=== PATIENT | female | born 1940 | race Caucasian/White ===

== ENCOUNTER → 2017-01-11 | Outpatient (CLI) | payer MEDICARE | END | disposition home or self-care (01) | LOC: CVU 14:15 | PROVIDERS: ATTEND Surgery | DX: I70.201 Unspecified atherosclerosis of native arteries of extremities, right leg (principal); I10 Essential (primary) hypertension; E78.5 Hyperlipidemia, unspecified; J44.9 Chronic obstructive pulmonary disease, unspecified; Z95.820 Peripheral vascular angioplasty status with implants and grafts | CPT/HCPCS: 93922; 93978 ==

== ENCOUNTER → 2018-06-30 | Outpatient (CLI) | payer MEDICARE | END | disposition home or self-care (01) | LOC: CVU 08:03 | PROVIDERS: ATTEND Surgery | DX: I65.23 Occlusion and stenosis of bilateral carotid arteries (principal); I70.201 Unspecified atherosclerosis of native arteries of extremities, right leg; I74.5 Embolism and thrombosis of iliac artery; I10 Essential (primary) hypertension; E78.5 Hyperlipidemia, unspecified; E78.00 Pure hypercholesterolemia, unspecified; I70.8 Atherosclerosis of other arteries; J84.10 Pulmonary fibrosis, unspecified | CPT/HCPCS: 93880; 93922; 93978 ==

== ENCOUNTER → 2018-11-03 | Outpatient (CLI) | payer MEDICARE ==
[~2018-11-03] MED LIST: CALC1CAP8 PO; CLOP75TA PO; MELA10TA PO; MULT-516 PO; PIRF801T PO; POTA20TA6 PO
[2018-11-03 09:24] LABS: ANION GAP 8 mmol/L (5-15); CALCIUM 9.7 mg/dL (8.5-10.1); CHLORIDE 109 mmol/L (98-107)
[2018-11-03 09:25] LABS: BASOPHILS # (AUTO) 0.03 x10^3/uL (0-0.1); BASOPHILS % (AUTO) 0 % (0-1); CREATININE 0.94 mg/dL (0.55-1.02); EOSINOPHILS # (AUTO) 0.24 x10^3/uL (0-0.4); EOSINOPHILS % (AUTO) 3 % (1-7); LYMPHOCYTES # (AUTO) 1.55 x10^3/uL (1-3.4); LYMPHOCYTES % (AUTO) 18 % (22-44); MD NO; MEAN CORPUSCULAR HEMOGLOBIN 29.3 pg (27.0-34.8); MEAN CORPUSCULAR HGB CONC 32.7 g/dL (32.4-35.8); MEAN CORPUSCULAR VOLUME 89.6 fL (80-100); MEAN PLATELET VOLUME 7.8 fL (7.4-10.4); MONOCYTES # (AUTO) 0.53 x10^3/uL (0.2-0.8); MONOCYTES % (AUTO) 6 % (2-9); NEUTROPHILS # (AUTO) 6.37 x10^3/uL (1.8-6.8); NEUTROPHILS % (AUTO) 73 % (42-75); PLATELET COUNT 312 x10^3/uL (130-400); RED CELL DISTRIBUTION WIDTH 13.7 % (9.6-15.2)
== END | disposition home or self-care (01) ==
LOC: STAR 07:56
PROVIDERS: ATTEND Surgery
DX: Z01.818 Encounter for other preprocedural examination (principal); I73.9 Peripheral vascular disease, unspecified; M25.571 Pain in right ankle and joints of right foot
CPT/HCPCS: 36415; 80048; 85025

== ENCOUNTER 2018-11-07 08:11 | Day surgery (SDC) | payer MEDICARE ==
[~2018-11-07] VITALS: Ht 162.6 cm; Wt 97.7 kg
[2018-11-07 08:50] VITALS: BP 165/72
[2018-11-07] MEDS ORDERED: PROTAMINE SULFATE 10 MG/ML, 25ML ONE (08:52)
[2018-11-07] MEDS ORDERED: FLUMAZENIL 0.1 MG/1 ML, 5ML ONE (08:52)
[2018-11-07] MEDS ORDERED: FENTANYL PF 100 MCG/2ML ONE (08:52)
[2018-11-07] MEDS ORDERED: NALOXONE 1 MG/ML, 2ML ONE (08:52)
[2018-11-07] MEDS ORDERED: MIDAZOLAM 1 MG/ML, 5ML ONE (08:52)
[2018-11-07] MEDS ORDERED: NITROGLYCERIN 5 MG/ML, 10ML ONE (08:52)
[2018-11-07] MEDS ORDERED: HEPARIN 1,000 UNITS/ML, 10ML ONE (08:52)
[2018-11-07] MEDS ORDERED: VISIPAQUE 270 MG/ML, 150ML BOTTLE ONE (09:00)
[2018-11-07] MEDS ORDERED: LIDOCAINE-MPF 1%, 5ML ONE (09:00)
[2018-11-07] MEDS ORDERED: CEFAZOLIN PMX 1GM/50ML 100 ML ONE (09:22)
[2018-11-07] MEDS ORDERED: hydrALAzine 20 MG/ML, 1ML ONE (09:29)
== END 2018-11-07 12:50 | disposition home or self-care (01) ==
LOC: OUT 08:11
PROVIDERS: ATTEND Surgery
DX: I70.211 Atherosclerosis of native arteries of extremities with intermittent claudication, right leg (principal); J44.9 Chronic obstructive pulmonary disease, unspecified; I10 Essential (primary) hypertension; E78.5 Hyperlipidemia, unspecified; Z99.81 Dependence on supplemental oxygen
CPT/HCPCS: 36200; 75630; 76937; 99156; 99157; C1751; C1760; C1769; C1894; G0269; J0360; J0690; J2250; J3010; Q9966; J1644; J2720; J2310

== ENCOUNTER → 2018-12-15 | Outpatient (CLI) | payer MEDICARE | END | disposition home or self-care (01) | LOC: CVU 11:49 | PROVIDERS: ATTEND Surgery | DX: I65.23 Occlusion and stenosis of bilateral carotid arteries (principal); J84.9 Interstitial pulmonary disease, unspecified; J84.10 Pulmonary fibrosis, unspecified | CPT/HCPCS: 71250; 93880 ==

== ENCOUNTER → 2019-07-11 | Outpatient (CLI) | payer MEDICARE, OTHER ==
[~2019-07-11] MED LIST changes: +ACET-1600 PO; +ENOX40SY4 SQ; +HYDR-3240 PO; +LISI5TAB7 PO; +SIMV20TA3 PO; +TRIA15CR53 TD
== END | disposition home or self-care (01) ==
LOC: CFH 12:27
PROVIDERS: ATTEND Nurse Practitioner Family
DX: J84.10 Pulmonary fibrosis, unspecified (principal); J84.9 Interstitial pulmonary disease, unspecified; J96.11 Chronic respiratory failure with hypoxia; Z87.891 Personal history of nicotine dependence
CPT/HCPCS: 71046

== ENCOUNTER 2019-08-08 12:27 | Outpatient (CLI) | payer MEDICARE ==
[~2019-08-08 12:27] MED LIST changes: +REGADENOSON 0.4 MG/5 ML SYRINGE ONE; +SIMV20TA19 PO; -SIMV20TA3 PO
== END 2019-08-08 23:59 | disposition home or self-care (01) ==
LOC: CFH 12:27
PROVIDERS: ATTEND Surgery
DX: Z01.818 Encounter for other preprocedural examination (principal); I25.10 Atherosclerotic heart disease of native coronary artery without angina pectoris
CPT/HCPCS: 78452; 93017; A9502; J2785

== ENCOUNTER → 2019-08-28 | Outpatient (CLI) | payer MEDICARE ==
[~2019-08-28] MED LIST changes: -REGADENOSON 0.4 MG/5 ML SYRINGE ONE; -SIMV20TA19 PO; +SIMV20TA3 PO
== END | disposition home or self-care (01) ==
LOC: CVU 14:10
PROVIDERS: ATTEND Internal Medicine Cardiovascular Disease
DX: I08.0 Rheumatic disorders of both mitral and aortic valves (principal); E78.5 Hyperlipidemia, unspecified; Z87.891 Personal history of nicotine dependence; Z79.01 Long term (current) use of anticoagulants
CPT/HCPCS: 93306

== ENCOUNTER 2020-03-02 12:45 | Observation (INO) | payer MEDICARE ==
[2020-03-02] VITALS (11 sets, daily range): BP systolic 96–206; BP diastolic 46–102
[~2020-03-02] VITALS: Ht 162.6 cm; Wt 97.6 kg
[~2020-03-02 12:45] MED LIST changes: +SIMV20TA19 PO; -SIMV20TA3 PO
[2020-03-02] MEDS ORDERED: OMEP20CA20 PO (13:12)
[2020-03-02] MEDS ORDERED: POTA20TA14 PO (13:12)
--- NOTE | 2020-03-02 13:15 | NUR ---
PER DAUGHTER: LAB DRAWN AT [place] WEDNESDAY. HGB "5". PT C/O FEELING TIRED, A LITTLE LIGHTHEADED W/ "GETTING UP", CONSTIPATION. DENIES N/V. LAST BM: TODAY - FORMED, TAE. TOOK COLACE LAST NOC.
[2020-03-02] MEDS ORDERED: SODIUM CHLORIDE FLUSH 10ML SYR IVF ONE (13:30)
[2020-03-02 13:35] LABS: MEAN CORPUSCULAR HEMOGLOBIN 20.2 pg (27.0-34.8); MEAN CORPUSCULAR HGB CONC 30.5 g/dL (32.4-35.8); MEAN CORPUSCULAR VOLUME 66.3 fL (80-100); MEAN PLATELET VOLUME 7.7 fL (7.4-10.4); PLATELET COUNT 356 x10^3/uL (130-400); RED BLOOD COUNT 2.87 x10^6/uL (3.82-5.3); RED CELL DISTRIBUTION WIDTH 18.2 % (9.6-15.2)
[2020-03-02 13:43] LABS: ANION GAP 10 mmol/L (5-15); CALCIUM 8.1 mg/dL (8.5-10.1); CHLORIDE 114 mmol/L (98-107); CREATININE 0.87 mg/dL (0.55-1.02); INTERNATIONAL NORMALIZED RATIO 0.94 (0.93-1.1)
[2020-03-02 13:57] LABS: BASOPHILS # (AUTO) 0.14 x10^3/uL (0-0.1); BASOPHILS % (AUTO) 2 % (0-1); EOSINOPHILS # (AUTO) 0.23 x10^3/uL (0-0.4); EOSINOPHILS % (AUTO) 3 % (1-7); LYMPHOCYTES # (AUTO) 1.13 x10^3/uL (1-3.4); LYMPHOCYTES % (AUTO) 16 % (22-44); MD MORPH REVIEW ONLY; MONOCYTES # (AUTO) 0.46 x10^3/uL (0.2-0.8); MONOCYTES % (AUTO) 7 % (2-9); NEUTROPHILS # (AUTO) 5.14 x10^3/uL (1.8-6.8); NEUTROPHILS % (AUTO) 72 % (42-75)
[2020-03-02 13:58] LABS: ANISOCYTOSIS 1+; HYPOCHROMIA 1+; MICROCYTOSIS 2+; POLYCHROMASIA 1+
[2020-03-02 13:59] LABS: <PLATELET ESTIMATE> ADEQUATE; <PLT MORPHOLOGY> NORMAL PLT MORPH; OVALOCYTES 1+; TEAR DROPS 1+
--- NOTE | 2020-03-02 14:30 | NUR ---
IV ATTEMPTED X3; UNSUCCESSFUL; WILL SEEK ASSISTANCE.
--- NOTE | 2020-03-02 14:46 | NUR ---
TRANSFUSION EDUCATION DOCUMENT PROVIDED TO PT. BLOOD TRANSFUSION CONSENT SIGNED BY PT.
--- NOTE | 2020-03-02 14:57 | NUR ---
BLOOD REQUEST FORM TUBED TO BLOOD BANK.
[2020-03-02] MEDS ORDERED: SODIUM CHLORIDE FLUSH 10ML SYR IVF PRN (15:00)
--- NOTE | 2020-03-02 15:20 | NUR ---
BLOOD TRANSFUSION INITIATED. PT RESTING QUIETLY ON GURNEY. CARDIAC & VS MONITORING IN PROGRESS. CALL LIGHT W/IN REACH
--- NOTE | 2020-03-02 15:37 | NUR ---
DR REED AT BS; AWARE OF BP 201/67
[2020-03-02] MEDS ORDERED: hydrALAzine 20 MG/ML, 1ML IVPush PRN (16:00)
[2020-03-02] MEDS ORDERED: ACETAMINOPHEN 325 MG TABLET PO PRN (16:00)
[2020-03-02] MEDS ORDERED: ONDANSETRON 2MG/ML, 2ML IVPush PRN (16:00)
[2020-03-02] MEDS ORDERED: POTASSIUM CHLORIDE 20 MEQ TAB.ER.PRT PO ONE (16:00)
[2020-03-02] MEDS ORDERED: LABETALOL 5MG/ML, 20ML IVPush PRN (16:00)
[2020-03-02] MEDS ORDERED: POTASSIUM CHLORIDE 20 MEQ TAB.ER.PRT ONE (16:14)
--- NOTE | 2020-03-02 16:25 | NUR ---
PT'S PRESCRIPTION BOTTLE OF ESBRIET 801MG TAB CHECKED AND OK'D PER PHARMACY
[2020-03-02] MEDS: PIRFENIDONE 801 MG HOMEMEDPO SCH ×2 (16:33→20:45)
--- NOTE | 2020-03-02 16:34 | NUR ---
KDUR AND ESBRIET GIVEN PER EMAR. LISE CRACKERS AND WATER PROVIDED TO PT.
--- NOTE | 2020-03-02 16:49 | NUR ---
PT REPORT TO [facility] FOR ROOM [id number]
--- NOTE | 2020-03-02 16:52 | NUR ---
PT UP TO BS COMMODE. RETURNED TO [facility] W/OUT INCIDENT.
[2020-03-02] MEDS: CALCIUM/VITAMIN D3 250-125 TABLET PO SCH (20:43)
[2020-03-02] MEDS ORDERED: MELATONIN 5 MG TABLET PO SCH (21:00)
[2020-03-02] MEDS ORDERED: SIMVASTATIN 20 MG TABLET PO SCH (21:00)
[2020-03-03 01:18] VITALS: BP 119/57
[2020-03-03 05:07] LABS: ANION GAP 6 mmol/L (5-15); CALCIUM 8.3 mg/dL (8.5-10.1); CHLORIDE 117 mmol/L (98-107); CREATININE 0.76 mg/dL (0.55-1.02)
[2020-03-03 06:23] LABS: MEAN CORPUSCULAR HEMOGLOBIN 23.2 pg (27.0-34.8); MEAN CORPUSCULAR HGB CONC 31.6 g/dL (32.4-35.8); MEAN CORPUSCULAR VOLUME 73.4 fL (80-100); MEAN PLATELET VOLUME 7.7 fL (7.4-10.4); PLATELET COUNT 338 x10^3/uL (130-400); RED BLOOD COUNT 3.46 x10^6/uL (3.82-5.3); RED CELL DISTRIBUTION WIDTH 22.2 % (9.6-15.2)
[2020-03-03 06:45] LABS: BASOPHILS # (AUTO) 0.06 x10^3/uL (0-0.1); BASOPHILS % (AUTO) 1 % (0-1); EOSINOPHILS # (AUTO) 0.27 x10^3/uL (0-0.4); EOSINOPHILS % (AUTO) 4 % (1-7); LYMPHOCYTES % (AUTO) 14 % (22-44); MD SCAN; MONOCYTES # (AUTO) 0.39 x10^3/uL (0.2-0.8); MONOCYTES % (AUTO) 5 % (2-9); NEUTROPHILS # (AUTO) 5.56 x10^3/uL (1.8-6.8); NEUTROPHILS % (AUTO) 76 % (42-75)
[2020-03-03 06:54] VITALS: BP 137/67
[2020-03-03] MEDS: CALCIUM/VITAMIN D3 250-125 TABLET PO SCH (08:11)
[2020-03-03] MEDS: PIRFENIDONE 801 MG HOMEMEDPO SCH ×2 (08:12→12:50)
[2020-03-03] MEDS ORDERED: MULTIVITAMIN 1 TABLET PO SCH (09:00)
[2020-03-03] MEDS ORDERED: OMEPRAZOLE 20 MG CAPSULE.DR PO SCH (09:00)
[2020-03-03] MEDS ORDERED: CLOPIDOGREL 75 MG TABLET PO SCH (09:00)
[2020-03-03] MEDS ORDERED: IRON SUCROSE COMPLEX 100MG/5ML IV SCH (09:00)
[2020-03-03] MEDS ORDERED: SENNA/DOCUSATE TABLET PO SCH (09:00)
[2020-03-03] MEDS ORDERED: FERR324T5 PO (10:37)
[2020-03-03] MEDS ORDERED: SENN-193 PO (10:37)
[2020-03-03 13:04] VITALS: BP 146/69
== END 2020-03-03 13:43 | disposition home or self-care (01) ==
LOC: ED 13:40 → EDIP 14:33 → INTOOBSV 14:33 → SUATTDRO 14:45 → 4WST 17:10
PROVIDERS: ADMIT Internal Medicine; ATTEND Hospitalist
DX: D50.0 Iron deficiency anemia secondary to blood loss (chronic) (principal); I16.0 Hypertensive urgency; I10 Essential (primary) hypertension; J84.112 Idiopathic pulmonary fibrosis; Z79.899 Other long term (current) drug therapy; I73.9 Peripheral vascular disease, unspecified; Z79.02 Long term (current) use of antithrombotics/antiplatelets
CPT/HCPCS: 36415; 36430; 80048; 82040; 82728; 83540; 83550; 85018; 85025; 85610; 85730; 86850; 86900; 86923; 96374; 96375; 99285; G0378; J0360; J1756; P9016

== ENCOUNTER → 2020-06-04 | Outpatient (CLI) | payer MEDICARE ==
[~2020-06-04] MED LIST changes: +FERR-46 PO; +FERR324T5 PO; +OMEP20CA20 PO; +POTA20TA14 PO; +SENN-193 PO; +SENN-220 PO
[2020-06-04 16:36] LABS: BASOPHILS % (AUTO) 1 % (0-1); EOSINOPHILS % (AUTO) 5 % (1-7); LYMPHOCYTES % (AUTO) 25 % (22-44); MEAN CORPUSCULAR HGB CONC 32.1 g/dL (32.4-35.8); MEAN PLATELET VOLUME 7.7 fL (7.4-10.4); MONOCYTES % (AUTO) 8 % (2-9); NEUTROPHILS % (AUTO) 61 % (42-75); PLATELET COUNT 306 x10^3/uL (130-400); RED BLOOD COUNT 4.27 x10^6/uL (3.82-5.3); RED CELL DISTRIBUTION WIDTH 14.8 % (9.6-15.2)
[2020-06-04 16:48] LABS: MD NO
== END | disposition home or self-care (01) ==
LOC: STAR 15:04
PROVIDERS: ATTEND Internal Medicine Gastroenterology
DX: Z01.818 Encounter for other preprocedural examination (principal); R13.19 Other dysphagia; I44.0 Atrioventricular block, first degree; R94.31 Abnormal electrocardiogram [ECG] [EKG]; Z20.828 Contact with and (suspected) exposure to other viral communicable diseases
CPT/HCPCS: 36415; 85025; 87635; 93005

== ENCOUNTER 2020-06-13 11:45 | Day surgery (SDC) | payer MEDICARE ==
[~2020-06-13] VITALS: Ht 162.6 cm; Wt 86.7 kg
[2020-06-13 12:13] VITALS: BP 141/97
[2020-06-13] MEDS ORDERED: CHLORHEXIDINE 15 ML UDC ONE (12:24)
[2020-06-13] MEDS ORDERED: LACTATED RINGERS 1,000 ML IV SCH (12:30)
[2020-06-13] MEDS ORDERED: CHLORHEXIDINE 15 ML UDC MM ONE (12:30)
[2020-06-13] MEDS ORDERED: PROPOFOL 50 ML ONE (13:07)
[2020-06-13] MEDS ORDERED: ONDANSETRON 2MG/ML, 2ML IVPush PRN (14:30)
== END 2020-06-13 16:15 | disposition home or self-care (01) ==
LOC: OUT 11:45
PROVIDERS: ATTEND Internal Medicine Gastroenterology
DX: D50.9 Iron deficiency anemia, unspecified (principal); D12.0 Benign neoplasm of cecum; D12.4 Benign neoplasm of descending colon; D12.8 Benign neoplasm of rectum; K55.20 Angiodysplasia of colon without hemorrhage; K44.9 Diaphragmatic hernia without obstruction or gangrene; K22.2 Esophageal obstruction; K21.9 Gastro-esophageal reflux disease without esophagitis; E78.2 Mixed hyperlipidemia; Z72.0 Tobacco use; Z79.899 Other long term (current) drug therapy; Z98.890 Other specified postprocedural states; Z72.89 Other problems related to lifestyle; Z82.49 Family history of ischemic heart disease and other diseases of the circulatory system; Z83.3 Family history of diabetes mellitus; Z20.828 Contact with and (suspected) exposure to other viral communicable diseases
CPT/HCPCS: 43239; 43249; 45385; 45388; 87635; 88305; C1725; J2704; J7120